=== PATIENT | male | born 1995 | race Caucasian/White ===

== ENCOUNTER 2018-08-25 12:01 | Emergency (ER) | payer OTHER ==
[2018-08-25] MEDS ORDERED: OXYCODONE-ACETAMINOPHEN 5-325 MG TABLET PO ONE (12:23)
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
[2018-08-25 14:11] VITALS: BP 148/92
== END 2018-08-25 14:11 | disposition home or self-care (01) ==
LOC: ER 12:01
DX: S90.01XA Contusion of right ankle, initial encounter (principal); M79.671 Pain in right foot; M25.571 Pain in right ankle and joints of right foot; F17.200 Nicotine dependence, unspecified, uncomplicated; W23.0XXA Caught, crushed, jammed, or pinched between moving objects, initial encounter
CPT/HCPCS: 99283